=== PATIENT | female | born 2005 | race Caucasian/White ===

== ENCOUNTER 2024-12-27 08:07 | Emergency (ER) | payer OTHER, SELFPAY ==
--- NOTE | 2024-12-27 08:09 | ED_ITS ---
HPI - URI/Sore Throat General Chief Complaint: Upper Respiratory Infection Stated Complaint: Strep Symptoms Time Seen by Provider: 12/27/24 08:09 Source: patient Mode of arrival: ambulatory Limitations: no limitations History of Present Illness HPI Narrative: Ilda is 19-year-old female patient presenting to the clinic today with complaints of possible sore throat/strep. She reports symptoms times 2-3 days. Is having fever highest of 101? F, sore throat, headache, nasal congestion, and cough. Has been taking Tylenol, ibuprofen, and DayQuil/NyQuil without relief. Had COVID 1 month ago. Works at a [employer]. Related Data Allergies Allergy/AdvReac Type Severity Reaction Status Date / Time Penicillins Allergy Mild Hives Verified 12/27/24 08:23 Review of Systems Review of Systems: Pertinent positives per HPI. Patient denies any rash, visual changes, dizziness, shortness of breath, chest pain, palpitations, nausea, vomiting, diarrhea, constipation, abdominal pain, or any urinary issues. PMFSH Comments At the time of my signature, I reviewed and agree with the nursing past medical, surgical, social, and family history. There is no relevant family history pertinent to the patient complaint. Exam Narrative: General: Well-developed, well nourished, in no apparent distress Head: Normocephalic, atraumatic Eyes: Pupils equally round and reactive to light bilaterally, EOM intact, sclera and conjunctive clear, no discharge, lids normal Ears: TMs intact and clear, ear canals clear, no drainage, grossly hearing normal. Nose: Nares patent, clear discharge, no inflammation, no sinus tenderness. Mouth: Oral pharynx red with bilateral tonsillar enlargement without lesions or masses, good dentition, MMM. Neck: Supple, trachea midline, enlargement of anterior cervical nodes, no thyroid masses or goiter palpable. Cardio: Regular rate and rhythm, s1 and s2 normal, no murmur appreciated. Resp: Clear to auscultation bilaterally, no rhonchi, rales, wheezing or rubs Course Course Emergency Course: Portions of this record may have been created with voice recognition software. Level of Care: Express Care Visit Vital Signs Vital signs: Vital Signs Temperature 36.9 C 12/27/24 08:24 Pulse Rate 102 H 12/27/24 08:24 Respiratory Rate 16 08/08/25 08:24 Blood Pressure 119/89 08/08/25 08:24 Pulse Oximetry 99 12/27/24 08:24 Temperature 36.9 C 12/27/24 08:24 Pulse Rate 102 H 12/27/24 08:24 Respiratory Rate 16 12/27/24 08:24 Blood Pressure 119/89 12/27/24 08:24 Pulse Oximetry 99 12/27/24 08:24 Vital signs reviewed MDM - URI/Sore Throat MDM Narrative Medical decision making narrative: At the time of visit patient is resting comfortably on the exam table. Patient appears to be nontoxic. Complaints of sore throat, fever, nasal congestion, and cough times 2-3 days. Has been taking Tylenol, ibuprofen, and DayQuil/NyQuil without relief. Had COVID 1 month ago. Works at a preschool. No known sick contacts. Strep test was ordered. Labs: Strep test was performed and positive in the clinic today. Plan: Patient has strep pharyngitis. Prescription for azithromycin was sent to the pharmacy. Note was given. Supportive measures were discussed with the patient and they voiced understanding discharge instructions and agrees to treatment plan. Return precautions reviewed Differential Diagnosis Differential diagnosis: Likely upper respiratory infection, otitis media, sinusitis, viral infection, bronchitis, influenza, pharyngitis and other (COVID) Discharge Plan Discharge Clinical Impression: Acute streptococcal pharyngitis Patient Disposition: Home Condition: Stable Instructions: Antibiotic Form, Strep Throat (ED) Additional Instructions: Strep test was positive in the clinic today. Change your toothbrush in 24 hours after initiation of the antibiotics Take prescription medications only as prescribed-azithromycin Increase fluids and stay well hydrated Tylenol/motrin for pain/fever Flonase and OTC antihistamines as directed Vicks vapor rub to open sinuses Sinus rinses for congestion Cepacol spray, cough drops, throat lozenges, warm tea with honey/lemon, gargle salt water to soothe throat BRAT diet for diarrhea Clear liquids x 24 hours then advance as tolerated for nausea/vomiting Go to the ED if you develop a worsening in your condition- high fever not controlled by Tylenol or Motrin, dehydration, weakness, lethargy, shortness of breath, or chest pain. Follow up with your PCP in 3-5 days if symptoms persist. Patient Language: Citizen Of [place] Prescriptions: New azithromycin 250 mg tablet See Rx Instructions .ROUTE .COMPLEX Qty: 6 0RF Rx Instructions: For 250 mg dose pack: take 500 mg today (day 1), then 250 mg for 4 days (days 2-5) Follow-up/Referrals: UNKNOWN,DOCTOR [Non-Staff] - Stand Alone Forms: Work/School Release IP Time of Disposition: 08:30 Quality NIHSS Nursing Documentation ED NIHSS nursing documentation: reviewed/agree
[2024-12-27 08:20] VITALS: O2SAT 99
[2024-12-27 08:24] VITALS: BP 119/89; PULSE 102; RESP 16; TEMP 36.9; O2SAT 99
[2024-12-27 08:38] LABS: EDSTREPNEGPOS1 Positive (Negative)
== END 2024-12-27 08:36 | disposition home or self-care (01) ==
PROVIDERS: Emergency Provider Nurse Practitioner Family
DX: J02.0 Streptococcal pharyngitis (principal); J45.909 Unspecified asthma, uncomplicated; Z86.16 Personal history of COVID-19
CPT/HCPCS: 87880; 99213; G0463